=== PATIENT | female | born 1975 | race Caucasian/White ===

== ENCOUNTER 2024-07-03 13:25 | Outpatient (REF) | payer OTHER, SELFPAY ==
--- NOTE | ~2024-07-03 | MR_ITS ---
EXAMINATION: MR BRAIN WITHOUT AND WITH CONTRAST CLINICAL INFORMATION: Anosmia COMPARISON: None TECHNIQUE: Multiplanar multisequence MR imaging of the brain was obtained without and following the administration of 6.5 mL Gadavist intravenous contrast. FINDINGS: No abnormal mass lesion or enhancement along the planum sphenoidale or cribriform plate. Normal appearance of the inferior aspects of the frontal lobes bilaterally. Normal appearance of the olfactory grooves and olfactory bulbs bilaterally. The olfactory recesses appear patent bilaterally. Normal appearance of the pituitary gland and infundibulum. The suprasellar cistern is patent. Normal appearance of the optic chiasm. There is no acute infarct on diffusion-weighted imaging. There is no intracranial hemorrhage on iron-sensitive imaging. No extra-axial collection or mass effect/herniation. There are several scattered foci of nonspecific supratentorial white matter T2/FLAIR signal abnormality. 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 No hydrocephalus. The ventricles are normal in morphology and size. No abnormal parenchymal or extra-axial enhancement. The major flow voids at the skull base are preserved. The midline structures are normal. The cerebellar tonsils are normally positioned. The craniocervical junction is normal. Marrow signal is within normal limits. The visualized soft tissues are without significant abnormality. T2 hyperintense material in the malar soft tissues is likely related to cosmetic injections. No signal abnormality within the paranasal sinuses or within the mastoid air cells. MR/MR head/brain wo/w con IMPRESSION: 1. No abnormality of the olfactory pathway is identified. 2. 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 Correlate with history of seizures. Consider follow-up MRI in 6-12 months to ensure stability. Electronically signed by: Pato Koenig MD 07/27/2024 05:05 PM EDT
[2024-07-03] MEDS: gadobutroL 7.5 ML VIAL IVPUSH (15:05)
== END 2024-07-03 13:26 | disposition home or self-care (01) ==
LOC: HO.MRI 13:25
PROVIDERS: PCP Internal Medicine; Visit Provider Psychiatry & Neurology Neurology
DX: R43.0 Anosmia (principal)
CPT/HCPCS: 70553; A9585